=== PATIENT | female | born 1970 | race Caucasian/White ===

== ENCOUNTER 2020-08-25 09:32 | Inpatient (IN) | payer BC ==
[~2020-08-25] VITALS: Ht 167.6 cm; Wt 77.1 kg
[~2020-08-25 09:32] MED LIST: ESCI20TA PO; GABA300C PO
[2020-08-25] MEDS ORDERED: PIPERACILLIN SODIUM/TAZOBACTAM 3.375 G in IV DEXTROSE 5% 50 ML IV ONE (10:00)
[2020-08-25] MEDS ORDERED: PIPERACILLIN/TAZOBACTAM/D5W 50 ML IV ONE (10:03)
[2020-08-25 10:06] LABS: BASOPHILS % (AUTO) 0.4 % (0.0-2.0); EOSINOPHILS # (AUTO) 0.2 K/uL (0.0-0.7); EOSINOPHILS % (AUTO) 1.8 % (0.0-7.0); HEMATOCRIT 41.3 % (31.2-41.9); HEMOGLOBIN 14.4 g/dL (10.9-14.3); LYMPHOCYTES # (AUTO) 1.8 K/uL (20.0-40.0); LYMPHOCYTES % (AUTO) 18.9 % (20.5-51.5); MEAN CORPUSCULAR HEMOGLOBIN 35.9 uug (24.7-32.8); MEAN CORPUSCULAR HGB CONC 35 g/dL (32.3-35.6); MEAN CORPUSCULAR VOLUME 103.2 fL (75.5-95.3); MONOCYTES # (AUTO) 0.9 K/uL (2.0-10.0); MONOCYTES % (AUTO) 9.7 % (0.0-11.0); NEUTROPHILS # (AUTO) 6.6 K/uL (1.8-8.9); NEUTROPHILS % (AUTO) 69.2 % (38.5-71.5); PLATELET COUNT (AUTO) 308 K/uL (179-408); WHITE BLOOD COUNT (AUTO) 9.5 K/uL (3.8-11.8)
--- NOTE | 2020-08-25 10:17 | NUR ---
Per pt to be admitted to m/s, floor called for bed assignment, assigned nurse to call back for report.
[2020-08-25 10:19] LABS: BILIRUBIN,DIRECT 0.1 mg/dL (0.0-0.2); BILIRUBIN,TOTAL 0.6 mg/dL (0.2-1.0); CREATININE 0.9 mg/dL (0.6-1.3); TOTAL PROTEIN, SERUM 7.2 g/dL (6.4-8.2)
[2020-08-25] MEDS ORDERED: AMOX-430 PO (10:19)
[2020-08-25] MEDS ORDERED: VANCOMYCIN IV 1,000 MG in IV DEXTROSE 5% 250 ML IV ONE (10:30)
[2020-08-25] MEDS ORDERED: IV NORMAL SALINE 1000 ML BAG IV ONE (10:30)
[2020-08-25] MEDS ORDERED: VANCOMYCIN IV 200 ML ONE (10:39)
--- NOTE | 2020-08-25 11:45 | NUR ---
Pt trans to m/s floor with NAD noted, 1400ml of NS bolus remaining, reported to [facility].
--- NOTE | 2020-08-25 12:13 | NUR ---
49 YEAR OLD FEMALE RECEIVED FROM ER VIA GURNEY TO ROOM 315 PT IS AXOX4 BRP CALL LIGHT WITH IN REACH MD MADE AWARE FOR ADMISSION ORDERS
[2020-08-25 12:20] VITALS: BP 113/62
[2020-08-25] MEDS ORDERED: ACETAMINOPHEN 325 MG TABLET PO PRN (12:45)
[2020-08-25] MEDS ORDERED: HYDROCODONE/APAP 5-325MG TABLET PO PRN (12:45)
[2020-08-25] MEDS ORDERED: MAGNESIUM HYDROXIDE 30 ML LIQUID UDC PO PRN (12:45)
[2020-08-25] MEDS ORDERED: LORAZEPAM 2 MG/1 ML VIAL IV PRN (12:45)
[2020-08-25] MEDS ORDERED: ONDANSETRON 4 MG/2 ML VIAL IV PRN (12:45)
[2020-08-25] MEDS ORDERED: Z GUARD REMEDY PASTE 57 GM TUBE TOP PRN (12:45)
[2020-08-25] MEDS ORDERED: ZOLPIDEM 5 MG TABLET PO PRN (12:45)
[2020-08-25] MEDS: CHLORDIAZEPOXIDE HCL 25 MG CAPSULE PO SCH ×2 (13:03→17:04)
[2020-08-25] MEDS: ESCITALOPRAM OXALATE 10 MG TABLET PO SCH (13:03)
[2020-08-25] MEDS: NICOTINE 21 MG/24HR PATCH TD SCH (13:30)
[2020-08-25] MEDS: IV NS 1000 ML 1,000 ML IV PRN (13:37)
[2020-08-25 15:36] VITALS: BP 105/48
[2020-08-25] MEDS: PIPERACILLIN SODIUM/TAZOBACTAM 3.375 G in IV DEXTROSE 5% 50 ML IV SCH (17:07)
--- NOTE | 2020-08-25 19:30 | NUR ---
Received pt awake and alert in bed. IV is infusing with no s/s of infiltration. Denies any SOB or pain at this time. Will continue to monitor.
[2020-08-25 20:39] VITALS: BP 104/54
[2020-08-25] MEDS ORDERED: GABAPENTIN 300 MG CAPSULE PO SCH (21:00)
[2020-08-25] MEDS: VANCOMYCIN IV 1,000 MG in IV DEXTROSE 5% 250 ML IV SCH (21:35)
[2020-08-26] MEDS: CHLORDIAZEPOXIDE HCL 25 MG CAPSULE PO SCH ×3 (00:35→11:24)
[2020-08-26] MEDS: PIPERACILLIN SODIUM/TAZOBACTAM 3.375 G in IV DEXTROSE 5% 50 ML IV SCH ×3 (00:35→11:02)
[2020-08-26 04:22] VITALS: BP 98/50
[2020-08-26] MEDS: IV NS 1000 ML 1,000 ML IV PRN (05:31)
[2020-08-26 06:04] LABS: BASOPHILS % (AUTO) 0.7 % (0.0-2.0); EOSINOPHILS # (AUTO) 0.2 K/uL (0.0-0.7); EOSINOPHILS % (AUTO) 3.3 % (0.0-7.0); HEMATOCRIT 35.9 % (31.2-41.9); HEMOGLOBIN 12.1 g/dL (10.9-14.3); LYMPHOCYTES % (AUTO) 27.2 % (20.5-51.5); MEAN CORPUSCULAR HEMOGLOBIN 34.9 uug (24.7-32.8); MEAN CORPUSCULAR HGB CONC 34 g/dL (32.3-35.6); MEAN CORPUSCULAR VOLUME 103.3 fL (75.5-95.3); MONOCYTES # (AUTO) 0.6 K/uL (2.0-10.0); MONOCYTES % (AUTO) 8.2 % (0.0-11.0); NEUTROPHILS # (AUTO) 4.4 K/uL (1.8-8.9); NEUTROPHILS % (AUTO) 60.6 % (38.5-71.5); PLATELET COUNT (AUTO) 255 K/uL (179-408); RED BLOOD CELL COUNT(AUTO) 3.48 MIL/uL (3.63-4.92); WHITE BLOOD COUNT (AUTO) 7.3 K/uL (3.8-11.8)
[2020-08-26 06:14] LABS: PHOSPHOROUS 4.2 mg/dL (2.5-4.9); POTASSIUM 3.4 mmol/L (3.5-5.1)
--- NOTE | 2020-08-26 06:30 | NUR ---
Pt slept throughout the night. Denies any pain or discomfort. On RA with no c/o SOB. Safety and comfort provided. Pt is able to ambulate without assistance to restroom. Will endorse to day shift.
[2020-08-26] MEDS: NICOTINE 21 MG/24HR PATCH TD SCH (08:05)
[2020-08-26] MEDS: ESCITALOPRAM OXALATE 10 MG TABLET PO SCH (08:05)
[2020-08-26] MEDS ORDERED: NICO-780 TP (08:49)
[2020-08-26] MEDS ORDERED: CHLO25CA22 PO (08:49)
[2020-08-26] MEDS ORDERED: SULF1TAB48 PO (08:49)
[2020-08-26] MEDS: VANCOMYCIN IV 1,000 MG in IV DEXTROSE 5% 250 ML IV SCH (09:10)
[2020-08-26] MEDS ORDERED: POTASSIUM CHLORIDE 20 MEQ TAB.PRT.SR PO SCH (10:30)
[2020-08-26 11:31] VITALS: BP 109/45
--- NOTE | 2020-08-26 11:53 | NUR ---
dc orders received noted and carried out.dc heplock per md orders,sc instruction and education given to the pt ,pt said she will follow up with her pcp in one week..pt left the facility via private car in stable condition
== END 2020-08-26 12:00 | disposition home or self-care (01) | DRG 603 ==
LOC: ER 09:32 → MEDSURG3 11:38
PROVIDERS: ADMIT Nurse Practitioner Acute Care; ATTEND Nurse Practitioner Acute Care
DX: L03.113 Cellulitis of right upper limb (principal); E87.2 Acidosis; S51.831D Puncture wound without foreign body of right forearm, subsequent encounter; W55.01XD Bitten by cat, subsequent encounter; Z20.828 Contact with and (suspected) exposure to other viral communicable diseases; F32.9 Major depressive disorder, single episode, unspecified; F10.10 Alcohol abuse, uncomplicated; Y90.0 Blood alcohol level of less than 20 mg/100 ml; F41.9 Anxiety disorder, unspecified; F17.210 Nicotine dependence, cigarettes, uncomplicated; Z79.899 Other long term (current) drug therapy
CPT/HCPCS: 36415; 73090; 83605; 83735; 84100; 85025; 85730; 87040; A4217; A4663; G0378; G0480; J2543; J3370; J7030; J7040; J7060

== ENCOUNTER 2024-11-08 02:45 | Emergency (ER) | payer BC ==
[~2024-11-08] VITALS: Ht 172.7 cm; Wt 72.6 kg
[~2024-11-08 02:45] MED LIST changes: +CHLO25CA22 PO; +NICO-780 TP; +SULF1TAB48 PO
[2024-11-08] MEDS ORDERED: ONDANSETRON 4 MG/2 ML VIAL ONE (03:06)
[2024-11-08] MEDS ORDERED: HYDROMORPHONE 1 MG/1 ML DISP.SYRIN ONE (03:06)
[2024-11-08 03:19] LABS: BASOPHILS # (AUTO) 0.1 K/UL (0.0-0.2); BASOPHILS % (AUTO) 0.7 % (0.0-2.0); EOSINOPHILS # (AUTO) 0.3 K/uL (0.0-0.7); EOSINOPHILS % (AUTO) 3.1 % (0.0-7.0); HEMATOCRIT 39.1 % (31.2-41.9); HEMOGLOBIN 13.1 g/dL (10.9-14.3); LYMPHOCYTES # (AUTO) 2.8 K/uL (0.8-4.8); LYMPHOCYTES % (AUTO) 28.1 % (20.5-51.5); MEAN CORPUSCULAR HEMOGLOBIN 32.5 uug (24.7-32.8); MEAN CORPUSCULAR HGB CONC 34 g/dL (32.3-35.6); MEAN CORPUSCULAR VOLUME 96.9 fL (75.5-95.3); MONOCYTES # (AUTO) 0.9 K/uL (0.1-1.30); MONOCYTES % (AUTO) 8.8 % (0.0-11.0); NEUTROPHILS # (AUTO) 5.9 K/uL (1.8-8.9); NEUTROPHILS % (AUTO) 59.3 % (38.5-71.5); PLATELET COUNT (AUTO) 346 K/uL (179-408); RED BLOOD CELL COUNT(AUTO) 4.03 MIL/uL (3.63-4.92); RED CELL DISTRIBUTION WIDTH 13.4 % (12.3-17.7)
[2024-11-08 03:20] LABS: DIFFERENTIAL COMMENT 1
[2024-11-08] MEDS: ONDANSETRON 4 MG/2 ML VIAL IV ONE ×2 (03:20→04:00)
[2024-11-08] MEDS: HYDROMORPHONE 1 MG/1 ML DISP.SYRIN IV ONE (03:20)
[2024-11-08] MEDS: IV NORMAL SALINE 1000 ML BAG IV ONE ×2 (03:20→04:53)
[2024-11-08 03:30] LABS: CALCIUM 8.8 mg/dL (8.5-10.1); CREATININE 1.2 mg/dL (0.6-1.3); POTASSIUM 4.1 mmol/L (3.5-5.1)
[2024-11-08 03:37] LABS: ALBUMIN 3.6 g/dL (3.4-5.0); BILIRUBIN,DIRECT 0.1 mg/dL (0.0-0.2); BILIRUBIN,TOTAL 0.4 mg/dL (0.2-1.0); TOTAL PROTEIN, SERUM 6.8 g/dL (6.4-8.2)
[2024-11-08 05:27] LABS: *BILIRUBIN,URIN NEGATIVE (NEGATIVE); *BLOOD, URINE 3+ (NEGATIVE); *CLARITY,URINE CLEAR (CLEAR); *COLOR,URINE YELLOW (YELLOW); *KETONES,URINE NEGATIVE (NEGATIVE); *PROTEIN,URINE 1+ (NEGATIVE); *UROBILINOGEN,URINE 0.2 E.U./dl (NORMAL); LEUKOCYTE ESTERASE ,URINE TRACE (NEGATIVE); NITRITE, URINE NEGATIVE (NEGATIVE); UGLUCOSE NEGATIVE (NEGATIVE)
[2024-11-08] MEDS ORDERED: HYDR-3980 PO (05:37)
[2024-11-08] MEDS ORDERED: ONDA4TAB11 PO (05:38)
[2024-11-08] MEDS ORDERED: IBUP-1490 PO (05:38)
[2024-11-08 05:47] LABS: BACTERIA,URINE FEW /HPF (NONE SEEN); MUCUS,URINE FEW /LPF (0-FEW); RBC,URINE 20-50 /HPF (0-3); SQUAMOUS EPITHELIAL CELL,UR FEW /HPF (NONE SEEN); WBC,URINE 0-3 /HPF (0-3)
[2024-11-08 05:59] VITALS: TEMP 98; O2SAT 95
== END 2024-11-08 05:50 | disposition home or self-care (01) ==
LOC: ER 02:45
DX: N20.2 Calculus of kidney with calculus of ureter (principal); R10.2 Pelvic and perineal pain; F32.A Depression, unspecified; Z79.899 Other long term (current) drug therapy; Z88.7 Allergy status to serum and vaccine
CPT/HCPCS: 99285; 74176; 96374; 96361; 71045; 96375; 80076; 80048; 81001; 83690; 85025; 85730; 87086; 84702; 36415; 51701; J1171; J2405; J7040 ×2; A4606; A4663; C1758

== ENCOUNTER 2024-11-29 12:06 | Emergency (ER) | payer BC ==
[~2024-11-29] VITALS: Ht 167.6 cm; Wt 72.6 kg
[~2024-11-29 12:06] MED LIST changes: +HYDR-3980 PO; +IBUP-1490 PO; +ONDA4TAB11 PO
[2024-11-29 12:43] LABS: BASOPHILS # (AUTO) 0.1 K/UL (0.0-0.2); BASOPHILS % (AUTO) 0.9 % (0.0-2.0); EOSINOPHILS # (AUTO) 0.2 K/uL (0.0-0.7); EOSINOPHILS % (AUTO) 2.1 % (0.0-7.0); HEMATOCRIT 35.7 % (31.2-41.9); LYMPHOCYTES % (AUTO) 23.3 % (20.5-51.5); MEAN CORPUSCULAR HEMOGLOBIN 31.7 uug (24.7-32.8); MEAN CORPUSCULAR HGB CONC 34 g/dL (32.3-35.6); MEAN CORPUSCULAR VOLUME 93.9 fL (75.5-95.3); MONOCYTES # (AUTO) 0.8 K/uL (0.1-1.30); MONOCYTES % (AUTO) 9.7 % (0.0-11.0); NEUTROPHILS # (AUTO) 5.4 K/uL (1.8-8.9); PLATELET COUNT (AUTO) 326 K/uL (179-408); RED CELL DISTRIBUTION WIDTH 12.8 % (12.3-17.7); WHITE BLOOD COUNT (AUTO) 8.5 K/uL (3.8-11.8)
[2024-11-29 13:27] LABS: DIFFERENTIAL COMMENT 1
[2024-11-29 13:54] LABS: CARBON DIOXIDE 29 mmol/L (21-32); CHLORIDE 104 mmol/L (98-107); CREATININE 0.9 mg/dL (0.6-1.3); GLUCOSE 94 mg/dL (74-106); POTASSIUM 3.6 mmol/L (3.5-5.1); SODIUM SERUM 142 mmol/L (136-145); UREA NITROGEN, BLOOD 7 mg/dL (7-18)
[2024-11-29] MEDS: IV NORMAL SALINE 500 ML BAG IV ONE (13:56)
[2024-11-29 14:07] LABS: ALANINE AMINOTRANSFERASE 26 U/L (14-59); ALBUMIN 3.1 g/dL (3.4-5.0); ALKALINE PHOSPHATASE 94 U/L (50-136); ASPARTATE AMINOTRANSFERASE 21 U/L (15-37); BILIRUBIN,DIRECT 0.1 mg/dL (0.0-0.2); BILIRUBIN,TOTAL 0.4 mg/dL (0.2-1.0); NT-PRO BNP 101 pg/mL (0-125); TOTAL PROTEIN, SERUM 6.8 g/dL (6.4-8.2)
[2024-11-29 14:50] VITALS: BP 113/70; TEMP 98; O2SAT 96
== END 2024-11-29 14:58 | disposition home or self-care (01) ==
LOC: ER 12:16
DX: R07.2 Precordial pain (principal); R06.02 Shortness of breath; F32.A Depression, unspecified; F17.210 Nicotine dependence, cigarettes, uncomplicated; Z79.899 Other long term (current) drug therapy; Z88.7 Allergy status to serum and vaccine
CPT/HCPCS: 99285; 96360; 71045; 80061; 80076; 80048; 83880; 85025; 85610; 84484; 36415; 93005; J7040; A4606; A4663